=== PATIENT | female | born 1940 | race Caucasian/White ===

== ENCOUNTER 2017-02-08 22:08 | Inpatient (IN) | payer MEDICARE, BC, OTHER ==
--- NOTE | ~2017-02-08 | DS ---
Discharge Summary [facility] [address] [place]. [address] NAME: BENIGNO WU : 36 STATUS : DIS IN PAT#: [id number] AGE: 76 ADM/REG DATE : 02/08/17 MR#: [id number] REPORT SERV DATE: 02/23/17 DICTATED BY: JÚNIOR DELAROSA DATE: 02/22/17 REPORT STATUS : Draft TRANSCRIBED BY: VANESSA DATE: 02/22/17 Data Collection from hospitalization DISCHARGE DIAGNOSES: 1. Stress cardiomyopathy. 2. Demand ischemia. 3. Hypertension. 4. Paroxysmal atrial fibrillation. 5. Diabetes mellitus. 6. Dyslipidemia. 7. Former smoker. CONSULTATIONS: None. PROCEDURES PERFORMED: 1. Cardiac catheterization, 02/08/2017. 2. CT scan of the chest without contrast, 02/08/2017. DISCHARGE MEDICATION: Cordarone 200 mg daily, Norvasc 5 mg daily, Eliquis 5 mg twice a day, aspirin 81 mg daily, Lipitor 40 mg at bedtime, Coreg 6.25 mg twice a day, Aricept 10 mg daily, folic acid 1 mg daily, Lasix 20 mg daily, Neurontin 300 mg every morning and 600 mg at bedtime, [place] 7.5/325 one tablet every four hours as needed, Lantus 30 units subcutaneously at bedtime, Humalog as instructed, Imdur 30 mg daily, Prinivil 5 mg daily, Amitiza 24 mcg twice a day as needed, Antivert 12.5 mg twice a day as needed, Protonix 40 mg before breakfast. She was instructed not to continue Rythmol. CONDITION AT DISCHARGE: Stable. DISPOSITION: The patient was discharged home on an 1800-calorie cardiac/diabetic diet with activities as instructed. She would follow up with me, 03/09/2017 and would follow up with Dr. Jeremy Trevino, 02/25/2017. HOSPITAL COURSE: This is a 76-year-old female, who has a history of paroxysmal atrial fibrillation, symptomatic bradycardia/sick sinus syndrome and nonocclusive coronary heart disease. The patient presented with a chief complaint of substernal pressure/burning-type chest pain with onset at approximately 6 p.m. hours on the evening of this admission. The patient had been in her usual state of health until the day of this admission. She had undergone an upper endoscopy and balloon dilation of the esophagus by her boatswain mate apparently for symptoms of dysphagia. She apparently did well post procedure and there were no immediate complications. Approximately 6 p.m. on the evening of this admission, she developed the fairly abrupt onset of severe 8/10 substernal burning-type chest pain. The patient and her were instructed to present to the emergency room for any chest pain after her EGD. On presentation, a 12-lead EKG was performed that showed Q-waves in leads V1, V2, and V3 with [address]-segment elevation in V2 and QT prolongation with T-wave inversion, which was felt to be suspicious for acute coronary syndrome. A CT scan of the thorax was performed. It was felt unlikely that the patient's symptoms were due to esophageal rupture or other esophageal problems. Troponin I was found to be 0.96. It was felt that the patient would need to undergo cardiac catheterization for suspicion of Discharge Summary [address] [address] NAME: BENIGNO WU : 36 STATUS : DIS IN PAT#: [id number] AGE: 76 ADM/REG DATE : 02/08/17 MR#: [id number] REPORT SERV DATE: 02/23/17 DICTATED BY: JÚNIOR DELAROSA DATE: 02/22/17 REPORT STATUS : Draft TRANSCRIBED BY: VANESSA DATE: 02/22/17 possible transmural myocardial infarction, STEMI. She had ongoing 6/10 chest pain, but denies shortness of breath. She was admitted for further evaluation and treatment. Upon admission, her home diabetes regimen was continued with sliding scale insulin as needed. The patient has a history of paroxysmal atrial fibrillation. The patient would use aspirin and Plavix as anti-platelet therapy. She may also continue Eliquis for stroke prophylaxis. She was currently in a normal sinus rhythm/atrial paced rhythm. She was taken to the cardiac laboratory chemical assistant, where she underwent the above-mentioned procedure. She tolerated this well and there were no complications. 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 The patient reports stress from recent arrest and incarceration of her son. No significant occlusive coronary artery disease was noted. Lisinopril was started the following day. She had no chest pain or shortness of breath. Her lungs were clear. She was in a normal sinus rhythm. Eliquis was going to be resumed on the . Echocardiogram was performed. On the , she did have some chest pain that morning with recurrent atrial fibrillation. Eliquis was restarted. Amiodarone was given. She underwent diabetes education. Discharge planning was performed. She remained stable over the next couple of days. Discharge planning continued. On 02/12/2017, she had some mild recurrent chest pain and some dyspnea on exertion. Her lungs were clear bilaterally. She had no edema. She was in a normal sinus rhythm-atrial paced rhythm. Discharge instructions were given. Due to her improved and stable condition, she was discharged home with the above-stated instructions. Information collected by: Coleen Sheikh I submit the above information as my discharge summary. TG/MODL Júnior Delarosa M.D., Ph.D, F.A.C.C. / [id number] CC: MD Jeremy Landin M.D.
--- NOTE | ~2017-02-08 | HP ---
History And Physical [id number] [place]. [address] NAME: BENIGNO WU : 38 STATUS : ADM IN [facility]#: [id number] AGE: 76 ADM/REG DATE : 02/08/17 MR#: [id number] REPORT SERV DATE: 02/09/17 DICTATED BY: ESTHER MART DATE: 02/08/17 REPORT STATUS : Draft TRANSCRIBED BY: MODL DATE: 02/08/17 DATE OF ADMISSION: 02/08/2017 CARDIOLOGY ADMISSION HISTORY AND PHYSICAL IDENTIFYING DATA: The patient is a 76-year-old woman with a history of paroxysmal atrial fibrillation, symptomatic bradycardia/sick sinus syndrome, and nonocclusive coronary heart disease. CHIEF COMPLAINT: Substernal pressure/burning type chest pain with onset at approximately 1800 hours this evening. HISTORY OF PRESENT ILLNESS: Ms Wu is a 76-year-old woman who is a patient of Dr. Raudel Skaggs. The patient was in her usual state of health until this morning. The patient underwent an upper endoscopy and balloon dilation of the esophagus by her canoe builder, apparently for symptoms of dysphagia. The patient apparently did well post procedure and there are no immediate complications. At approximately 1800 hours this evening, she experienced the abrupt onset of a fairly severe 8/10 substernal burning type chest pain. The patient and her had been given instructions to present to the emergency room for any chest pain after her EGD. On presentation, a 12-lead EKG was performed. This showed Q-waves in leads V1 and V2 and V3 with [address]-segment elevation in V2 and QT prolongation with T-wave inversion which was felt to be suspicious for an acute coronary syndrome. Given the patient's unusual presentation, a CT scan of the thorax was performed. The official read is pending, however, the Gastroenterology Service was contacted. They feel that it is unlikely that the patient's symptoms are due to esophageal rupture or other esophageal problems. The patient's troponin I was found to be 0.96. The patient is being taken for emergency cardiac catheterization for suspicion of possible transmural myocardial infarction, STEMI. At this time, the patient has ongoing 6/10 chest pain. She denies any shortness of breath, however. PAST MEDICAL HISTORY: 1. Type 2 diabetes. 2. Hypertension. 3. Dyslipidemia. 4. Paroxysmal atrial fibrillation. 5. Nonocclusive coronary disease with previous cardiac catheterization showing a 50% to 70% RCA lesion with an FFR value of 0.93. PAST SURGICAL HISTORY: The patient has had a permanent pacemaker implantation. She has had multiple previous GI procedures. She has had several previous cardiac catheterizations, though none of these have shown significant occlusive disease. Otherwise, noncontributory. FAMILY HISTORY: The patient does have a positive family history of coronary heart disease. History And Physical [address] [address] NAME: BENIGNO WU : 36 STATUS : ADM IN PAT#: [id number] AGE: 76 ADM/REG DATE : 02/08/17 MR#: [id number] REPORT SERV DATE: 02/09/17 DICTATED BY: ESTHER MART DATE: 02/08/17 REPORT STATUS : Draft TRANSCRIBED BY: VANESSA DATE: 02/08/17 SOCIAL HISTORY: The patient has no ongoing smoking history, though she apparently does have a distant history of cigarette smoking. She has no history of alcohol or drug use. She is . ALLERGIES: THE PATIENT HAS DOCUMENTED ALLERGIES TO MORPHINE, CODEINE, STADOL, AND PHENERGAN. HOME MEDICATIONS: 1. Amlodipine 5 mg p.o. daily. 2. Eliquis 5 mg p.o. twice daily. 3. Lipitor 40 mg p.o. at bedtime. 4. Carvedilol 6.25 mg p.o. twice daily. 5. Aricept 10 mg p.o. daily. 6. Folic acid 1 mg p.o. daily. 7. Gabapentin 300 mg p.o. q.a.m. and 600 mg p.o. at bedtime. 8. Hydrocodone and acetaminophen 7.5 mg/325 mg one tablet q.4 hours as needed for pain. 9. Lantus insulin 30 units subcutaneously q.h.s. 10.Insulin sliding scale. 11.Isosorbide mononitrate 30 mg p.o. daily. 12.Amitiza 24 mcg p.o. twice daily as needed for constipation. 13.Antivert 12.5 mg p.o. twice daily as needed for dizziness. 14.Pantoprazole 40 mg p.o. q.a.m. 15.Propafenone 225 mg p.o. twice daily. REVIEW OF SYSTEMS: A complete 12-system review was performed. This is noncontributory except for the pertinent positives and negatives noted in the history of present illness above. PHYSICAL EXAMINATION: VITAL SIGNS: Temperature is 97.8 degrees Fahrenheit, blood pressure is 124/72 mmHg, heart rate is 110 beats per minute and regular, respirations 18, and oxygen saturation is 96% on 2 L nasal cannula. GENERAL: The patient is an obese white woman, who is in no acute distress. EYES: PERRL, EOMI, clear conjunctiva. HEAD/MNT: NCAT with moist mucous membranes and grossly normal hard and soft palate. NECK: Supple with no obvious thyromegaly or lymphadenopathy CARDIOVASCULAR: There is a regular rhythm with a normal S1 and a physiologically split second heart sound. There is a grade 1/6 early peaking systolic murmur suggestive of a benign flow murmur versus aortic sclerosis without stenosis. The jugular venous pressure is normal. PULMONARY: Clear to auscultation bilaterally, no wheezing, rales or rhonchi noted. No dullness to percussion. Non-labored. ABDOMINAL: Soft, non-tender, non-distended with no hepatosplenomegaly noted. EXTREMITIES: No clubbing, cyanosis or edema. MUSCULOSKELETAL: Grossly normal strength and range of motion in all extremities INTEGUMENTARY: Skin appears intact with no bruises, wounds or active lesions noted NEURO/PSYC: Alert and oriented x3, with no dysarthria, facial droop or lateralizing weakness noted. History And Physical [address] [address] NAME: BENIGNO WU : 36 STATUS : ADM IN [facility]#: [id number] AGE: 76 ADM/REG DATE : 02/08/17 MR#: [id number] REPORT SERV DATE: 02/09/17 DICTATED BY: ESTHER MART DATE: 02/08/17 REPORT STATUS : Draft TRANSCRIBED BY: VANESSA DATE: 02/08/17 STUDIES: 12-lead EKG: The 12-lead EKG shows an atrial paced rhythm. There are Q-waves in leads V1 through V3 with 0.[address]-segment elevation noted in leads V2 and V3. There are no reciprocal changes noted, however. The patient's Q-waves in leads V3 and possibly V4 are new since a previous EKG from November of 2016. Overall, the findings are concerning for an evolving anterior myocardial infarction. LABORATORY DATA: Cell count show a white blood cell count of 8.9, hemoglobin 13.5, hematocrit 39, platelets 234. PTT is 26, INR is 1.1. Chemistry shows a sodium of 138, potassium 4.0, chloride is 101, CO2 of 26, BUN 15, creatinine is 1.15, calculated GFR 46, glucose is 386, magnesium 1.6. Troponin I is 0.96. CHEST X-RAY: This shows a dual-chamber pacemaker with leads in appropriate location and no other acute cardiopulmonary process. ASSESSMENT AND PLAN: 1. Suspected evolving anterior ST-segment elevation myocardial infarction: The patient will be taken for emergency cardiac catheterization. Her last dose of Eliquis was greater than 24 hours ago, as this has helped with the patient's EGD this morning. The Gastroenterology Service was contacted by the Emergency Medicine Service and reports no absolute contraindication to anticoagulation or dual anti-platelet therapy. Further recommendations, pending the results of the patient's cardiac catheterization. 2. Paroxysmal atrial fibrillation: The patient will use aspirin and Plavix as antiplatelet therapy, so she may continue on Eliquis for stroke prophylaxis. The patient is currently in normal sinus rhythm/atrial paced rhythm. 3. Type 2 diabetes: Continue home regimen with a sliding scale insulin as needed. TEE/MODL Etsher Mart MD / [id number] CC: Esther Mart MD
[2017-02-08 21:45] LABS: BASOPHILS 0.6 %; BASOPHILS ABSOLUTE 0.05 10/3/uL (0.0-0.16); EOSINOPHILS 0.7 %; EOSINOPHILS ABSOLUTE 0.06 10/3/uL (0.0-0.53); ER CBC TAT 0 Hrs 07 Mins; HEMATOCRIT 39.4 % (36.0-48.0); HEMOGLOBIN 13.5 g/dL (12.0-16.0); IMMATURE GRANULOCYTES 0.2 %; IMMATURE GRANULOCYTES ABSOLUTE 0.02 10/3/uL (0.0-0.11); LYMPHOCYTES 26.9 %; LYMPHOCYTES ABSOLUTE 2.39 10/3/uL (0.67-4.30); MEAN CORPUS HGB CONC 34.3 g/dL (32.0-36.0); MEAN CORPUSCULAR VOLUME 87.6 fL (80-100); MONOCYTES 6.6 %; MONOCYTES ABSOLUTE 0.59 10/3/uL (0.21-1.20); NEUTROPHILS ABSOLUTE 5.78 10/3/uL (2.02-8.40); PLATELET COUNT 234 10/3/uL (150-400); RBC DISTRIBUTION WIDTH 13.4 % (12.0-16.0); WHITE BLOOD CELLS 8.9 10/3/uL (4.5-10.5)
[2017-02-08 21:47] LABS: MANUAL DIFF NO %
[2017-02-08 21:53] LABS: INTERNATIONAL NORMAL RATI 1.1 UNITS (-); PARTIAL THROMBO TIME 26.6 SEC (22.5-37.2); PROTIME (NOT ORD) 14.5 SEC (12.0-14.5)
[2017-02-08 22:03] LABS: BUN (BLOOD UREA NITROGEN) 15 MG/DL (6-23); CALCIUM, SERUM 8.9 MG/DL (8.5-10.4); CHLORIDE, SERUM 101 MMOL/L (96-112); CO2 (CARBON DIOXIDE) 26 MMOL/L (24-34); CREATININE 1.15 MG/DL (0.55-1.02); GFR AFRICAN AMERICAN 53 ML/MIN (>=60); GFR NON AFRICAN AMERICAN 46 ML/MIN (>=60); SODIUM, SERUM 138 MMOL/L (135-148)
[2017-02-08 22:04] LABS: CHEST PAIN PROFILE TAT 0 Hrs 26 Mins; GLUCOSE, SERUM 386 MG/DL (60-99); TROPONIN I 0.96 NG/ML (<0.05)
[2017-02-08] MEDS ORDERED: HUMALOGPEN SC (22:24)
[2017-02-08] MEDS ORDERED: NORV5 PO (22:25)
[2017-02-08] MEDS ORDERED: IMDUR30 PO (22:26)
[2017-02-08] MEDS ORDERED: PROTONIX PO (22:26)
[2017-02-08] MEDS ORDERED: NORCO1 TA2 PO (22:26)
[2017-02-08] MEDS ORDERED: AMITIZA24 PO (22:26)
[2017-02-08] MEDS ORDERED: NEUR600 PO (22:27)
[2017-02-08] MEDS ORDERED: NEUR300 PO (22:27)
[2017-02-08] MEDS ORDERED: LIPITOR40 PO (22:28)
[2017-02-08] MEDS ORDERED: ARICEPT10 PO (22:28)
[2017-02-08] MEDS ORDERED: RYTHMOL225 MG PO (22:28)
[2017-02-08] MEDS ORDERED: MCZ125 PO (22:29)
[2017-02-08] MEDS ORDERED: ELIQUIS 5 MG TAB5 MG PO (22:29)
[2017-02-08] MEDS ORDERED: LANTUSCART SC (22:30)
[2017-02-08] MEDS ORDERED: FOLIC PO (22:30)
[2017-02-08] MEDS ORDERED: COREG6 PO (22:30)
[2017-02-09 05:01] LABS: BASOPHILS 0.7 %; BASOPHILS ABSOLUTE 0.05 10/3/uL (0.0-0.16); EOSINOPHILS 0.9 %; EOSINOPHILS ABSOLUTE 0.07 10/3/uL (0.0-0.53); HEMATOCRIT 36.1 % (36.0-48.0); HEMOGLOBIN 12.3 g/dL (12.0-16.0); IMMATURE GRANULOCYTES 0.1 %; IMMATURE GRANULOCYTES ABSOLUTE 0.01 10/3/uL (0.0-0.11); LYMPHOCYTES 47.8 %; LYMPHOCYTES ABSOLUTE 3.56 10/3/uL (0.67-4.30); MANUAL DIFF NO %; MEAN CORPUS HGB CONC 34.1 g/dL (32.0-36.0); MEAN CORPUSCULAR HEMOGLOB 30.2 pg (26.0-34.0); MEAN CORPUSCULAR VOLUME 88.7 fL (80-100); MEAN PLATELET VOLUME 10.8 fL (9.2-13.0); MONOCYTES 6.8 %; MONOCYTES ABSOLUTE 0.51 10/3/uL (0.21-1.20); NEUTROPHILS 43.7 %; NEUTROPHILS ABSOLUTE 3.25 10/3/uL (2.02-8.40); PLATELET COUNT 207 10/3/uL (150-400); RBC DISTRIBUTION WIDTH 13.3 % (12.0-16.0); RED CELL COUNT 4.07 10/6/uL (4.0-5.6); WHITE BLOOD CELLS 7.5 10/3/uL (4.5-10.5)
[2017-02-09 05:19] LABS: BUN (BLOOD UREA NITROGEN) 12 MG/DL (6-23); CALCIUM, SERUM 8.2 MG/DL (8.5-10.4); CHLORIDE, SERUM 105 MMOL/L (96-112); CHOL/HDL RATIO(NOT ORDER) 3.7 (0-5); CHOLESTEROL 138 MG/DL (< 200); CO2 (CARBON DIOXIDE) 25 MMOL/L (24-34); GFR AFRICAN AMERICAN 82 ML/MIN (>=60); GFR NON AFRICAN AMERICAN 71 ML/MIN (>=60); HDL CHOLESTEROL 37 MG/DL (> 49); LDL CHOLESTEROL 71 MG/DL (< 130); NON-HDL CHOLESTEROL 101 MG/DL (< 160); POTASSIUM, SERUM 3.6 MMOL/L (3.5-5.3); SODIUM, SERUM 140 MMOL/L (135-148); TRIGLYCERIDE 152 MG/DL (< 150)
[2017-02-09 05:20] LABS: GLUCOSE, SERUM 284 MG/DL (60-99)
[2017-02-10 05:37] LABS: BUN (BLOOD UREA NITROGEN) 14 MG/DL (6-23); CALCIUM, SERUM 8.2 MG/DL (8.5-10.4); CHLORIDE, SERUM 104 MMOL/L (96-112); CO2 (CARBON DIOXIDE) 26 MMOL/L (24-34); CREATININE 0.62 MG/DL (0.55-1.02); GFR AFRICAN AMERICAN 100 ML/MIN (>=60); GFR NON AFRICAN AMERICAN 86 ML/MIN (>=60); POTASSIUM, SERUM 3.7 MMOL/L (3.5-5.3); SODIUM, SERUM 141 MMOL/L (135-148)
[2017-02-10 05:40] LABS: GLUCOSE, SERUM 205 MG/DL (60-99)
[2017-02-10 10:33] LABS: CPK 63 U/L (0-200)
[2017-02-10 10:34] LABS: CK-MB 2.4 NG/ML
[2017-02-11 06:05] LABS: BUN (BLOOD UREA NITROGEN) 17 MG/DL (6-23); CALCIUM, SERUM 8.4 MG/DL (8.5-10.4); CHLORIDE, SERUM 107 MMOL/L (96-112); CREATININE 0.72 MG/DL (0.55-1.02); GFR AFRICAN AMERICAN 93 ML/MIN (>=60); GFR NON AFRICAN AMERICAN 80 ML/MIN (>=60); GLUCOSE, SERUM 246 MG/DL (60-99); SODIUM, SERUM 137 MMOL/L (135-148)
[2017-02-11 06:09] LABS: CO2 (CARBON DIOXIDE) 19 MMOL/L (24-34); POTASSIUM, SERUM 4.4 MMOL/L (3.5-5.3)
[2017-02-12 07:07] LABS: BASOPHILS 0.7 %; BASOPHILS ABSOLUTE 0.05 10/3/uL (0.0-0.16); EOSINOPHILS 2.2 %; EOSINOPHILS ABSOLUTE 0.16 10/3/uL (0.0-0.53); HEMATOCRIT 34.4 % (36.0-48.0); HEMOGLOBIN 11.3 g/dL (12.0-16.0); IMMATURE GRANULOCYTES 0.1 %; IMMATURE GRANULOCYTES ABSOLUTE 0.01 10/3/uL (0.0-0.11); LYMPHOCYTES 36.6 %; LYMPHOCYTES ABSOLUTE 2.68 10/3/uL (0.67-4.30); MEAN CORPUS HGB CONC 32.8 g/dL (32.0-36.0); MEAN CORPUSCULAR HEMOGLOB 30.2 pg (26.0-34.0); MEAN PLATELET VOLUME 11.1 fL (9.2-13.0); MONOCYTES 7.2 %; MONOCYTES ABSOLUTE 0.53 10/3/uL (0.21-1.20); NEUTROPHILS 53.2 %; NEUTROPHILS ABSOLUTE 3.89 10/3/uL (2.02-8.40); PLATELET COUNT 197 10/3/uL (150-400); RBC DISTRIBUTION WIDTH 13.3 % (12.0-16.0); RED CELL COUNT 3.74 10/6/uL (4.0-5.6); WHITE BLOOD CELLS 7.3 10/3/uL (4.5-10.5)
[2017-02-12 07:12] LABS: MANUAL DIFF NO %
[2017-02-12 07:18] LABS: BUN (BLOOD UREA NITROGEN) 19 MG/DL (6-23); CALCIUM, SERUM 8.2 MG/DL (8.5-10.4); CHLORIDE, SERUM 104 MMOL/L (96-112); CO2 (CARBON DIOXIDE) 27 MMOL/L (24-34); CREATININE 0.83 MG/DL (0.55-1.02); GFR AFRICAN AMERICAN 78 ML/MIN (>=60); GFR NON AFRICAN AMERICAN 68 ML/MIN (>=60); GLUCOSE, SERUM 187 MG/DL (60-99); POTASSIUM, SERUM 4.3 MMOL/L (3.5-5.3); SODIUM, SERUM 141 MMOL/L (135-148)
[2017-02-12] MEDS ORDERED: ASAB PO (10:10)
[2017-02-12] MEDS ORDERED: CORDARONE PO (10:11)
[2017-02-12] MEDS ORDERED: PRIN5 PO (10:11)
[2017-02-12] MEDS ORDERED: L20 PO (10:12)
== END 2017-02-12 11:14 | disposition home or self-care (01) | DRG 287 ==
LOC: CORLMH 22:08 → SSU2 22:15 → CCU 23:52 → 6NO 02-09 12:43
PROVIDERS: Hospitalist; Internal Medicine Cardiovascular Disease
PROC: 4A023N7 Measurement of Cardiac Sampling and Pressure, Left Heart, Percutaneous Approach (ICD-10-PCS; principal; 2017-02-08)
PROC: B2151ZZ Fluoroscopy of Left Heart using Low Osmolar Contrast (ICD-10-PCS; 2017-02-08)
PROC: B2111ZZ Fluoroscopy of Multiple Coronary Arteries using Low Osmolar Contrast (ICD-10-PCS; 2017-02-08)
PROC: 0DB68ZX Excision of Stomach, Via Natural or Artificial Opening Endoscopic, Diagnostic (ICD-10-PCS; 2017-02-08)
PROC: 0D758ZZ Dilation of Esophagus, Via Natural or Artificial Opening Endoscopic (ICD-10-PCS; 2017-02-08)
DX: I51.81 Takotsubo syndrome (principal); E11.65 Type 2 diabetes mellitus with hyperglycemia; I24.8 Other forms of acute ischemic heart disease; K29.60 Other gastritis without bleeding; I48.0 Paroxysmal atrial fibrillation; I10 Essential (primary) hypertension; I25.10 Atherosclerotic heart disease of native coronary artery without angina pectoris; K64.9 Unspecified hemorrhoids; G47.33 Obstructive sleep apnea (adult) (pediatric); M19.90 Unspecified osteoarthritis, unspecified site; M48.06 Spinal stenosis, lumbar region; E78.00 Pure hypercholesterolemia, unspecified; E78.5 Hyperlipidemia, unspecified; Z79.4 Long term (current) use of insulin; Z87.891 Personal history of nicotine dependence; Z95.0 Presence of cardiac pacemaker; Z88.5 Allergy status to narcotic agent; Z88.8 Allergy status to other drugs, medicaments and biological substances; Z79.82 Long term (current) use of aspirin; Z79.01 Long term (current) use of anticoagulants; Z79.899 Other long term (current) drug therapy; Z98.890 Other specified postprocedural states; Z90.49 Acquired absence of other specified parts of digestive tract; Z86.010 Personal history of colon polyps; Z87.442 Personal history of urinary calculi
CPT/HCPCS: 71020; 71250; 80048; 80061; 82550; 82553; 82962; 83690; 83735; 84484; 85025; 85610; 85730; 87641; 88305; 93005; 93458; 96374; 99152; 99285; A9270-GY; C1769; C1887; C1894; C8929; J0583; J1170; J2250; J3010; Q9957; Q9967